=== PATIENT | male | born 1960 | race Caucasian/White ===

== ENCOUNTER 2019-11-12 17:17 | Observation (INO) ==
[2019-11-12 18:23] LABS: Basophils % 0.3 % (0.0-0.8); Eosinophils % 0.2 % (0.00-10.9); Hematocrit 45.8 VOL% (42.0-52.0); Hemoglobin 15.3 GM/DL (14.0-18.0); Immature Granulocytes % 0.6 %; Immature Granulocytes Absolute 0.06 #; Lymphocytes # 2.4 10*3/uL (1.4-4.0); Lymphocytes % 24.5 % (21.2-54.2); Mean Corpuscular HGB Conc 33.4 GM/DL (32-36); Mean Corpuscular Volume 89.5 FL (87-102); Mean Platelet Volume 8.9 FL (9.6-12.0); Monocytes % 9.5 % (1.7-12.7); Neutrophils % 64.9 % (38.7-73.9); Platelet Count 258 T/CUMM (130-400); Red Blood Count 5.12 MC/CUMM (3.8-5.5); White Blood Count 9.9 T/CUMM (4-12)
[2019-11-12 18:38] LABS: Alanine Aminotransferase 51 U/L (16-61); Albumin 4.4 G/DL (3.4-5.0); Alkaline Phosphatase 57 U/L (45-117); Aspartate Amino Transferase 41 U/L (0-37); Blood Urea Nitrogen 15 MG/DL (7-18); Calcium 9.3 MG/DL (8.5-10.1); Estimated Glom Filtration Rate 78 ML/MIN; Glucose 75 MG/DL (74-106); Osmolality,Calculated 259.8 MOS/KG (273-304); Total Protein 7.5 G/DL (6.4-8.3)
[2019-11-12 19:08] LABS: Apearance,Urine CLEAR (Clear); Bilirubin,Urine Negative (Negative); Blood, Urine Negative (Negative); Glucose,Urine (UA) Negative (Negative); Ketones,Urine 80 mg/dL (Negative); Mucus,Urine Occasional /LPF (Occasional); Nitrite,Urine Negative (Negative); Protein,Urine Negative; RBC,Urine 2 /HPF (0-4); Squamous Epithelial Cell,Urine Occasional /HPF (0-10); Urine Color Yellow (Yellow); Urine Specific Gravity 1.025 (1.001-1.035); WBC,Urine 1 /HPF (0-6)
[2019-11-12 19:12] LABS: Barbiturates Screen,Urine Negative (Negative); Benzodiazepines Screen,Urine Negative (Negative); Cannabinoid Screen,Urine Negative (Negative); Opiate Screen,Urine Negative (Negative); Phencyclidine Screen,Urine Negative (Negative)
[2019-11-12] MEDS ORDERED: SODIUM CHLORIDE 0.9% 1,000 ML IV STA (20:03)
[2019-11-12] MEDS ORDERED: hydrALAZINE 20 MG/1 ML VIAL IV PRN (21:32)
[2019-11-12] MEDS ORDERED: DOCUSATE SODIUM 100 MG CAPSULE PO PRN (21:32)
[2019-11-12] MEDS ORDERED: DEXTROSE 50% 25 GM/50 ML VIAL IV PRN (21:32)
[2019-11-12] MEDS ORDERED: ONDANSETRON 4 MG/2 ML VIAL IV PRN (21:32)
[2019-11-12] MEDS ORDERED: ACETAMINOPHEN 325 MG TABLET PO PRN (21:32)
[2019-11-12] MEDS ORDERED: GLUCAGON 1 MG VIAL IM PRN (21:32)
[2019-11-12] MEDS: METOPROLOL TARTRATE 25 MG TABLET PO SCH (23:30)
[2019-11-12] MEDS: PHENYTOIN ER 100 MG CAPSULE PO SCH (23:30)
[2019-11-13 05:39] LABS: Basophils % 0.5 % (0.0-0.8); Eosinophils # 0.1 10*3/uL (0.0-0.87); Eosinophils % 1.2 % (0.00-10.9); Hematocrit 39.2 VOL% (42.0-52.0); Hemoglobin 13.4 GM/DL (14.0-18.0); Immature Granulocytes % 0.3 %; Immature Granulocytes Absolute 0.02 #; Lymphocytes # 1.6 10*3/uL (1.4-4.0); Lymphocytes % 24.8 % (21.2-54.2); Mean Corpuscular HGB Conc 34.2 GM/DL (32-36); Mean Corpuscular Volume 88.5 FL (87-102); Mean Platelet Volume 8.8 FL (9.6-12.0); Monocytes % 10.1 % (1.7-12.7); Neutrophils % 63.1 % (38.7-73.9); Platelet Count 201 T/CUMM (130-400); Red Blood Count 4.43 MC/CUMM (3.8-5.5); Red Cell Distribution Width 12.9 % (9.3-17.3); White Blood Count 6.5 T/CUMM (4-12)
[2019-11-13 06:01] LABS: Albumin 3.5 G/DL (3.4-5.0); Bilirubin,Direct 0.16 MG/DL (0.0-0.20); Bilirubin,Indirect 0.7 MG/DL (0.0-1.0); Bilirubin,Total 0.9 MG/DL (0.2-1.0); Total Protein 6.1 G/DL (6.4-8.3)
[2019-11-13 06:07] LABS: Calcium 8.1 MG/DL (8.5-10.1); Osmolality,Calculated 262.5 MOS/KG (273-304); Risk Ratio 3.49; Thyroid Stimulating Hormone 2.08 uIU/ml (0.358-3.74); VLDL CHOLESTEROL 16.6 MG/DL
[2019-11-13 06:45] LABS: Apearance,Urine CLEAR (Clear); Bilirubin,Urine Negative (Negative); Blood, Urine Negative (Negative); Glucose,Urine (UA) Negative (Negative); Ketones,Urine 80 mg/dL (Negative); Mucus,Urine Occasional /LPF (Occasional); Nitrite,Urine Negative (Negative); Protein,Urine Negative; RBC,Urine 2 /HPF (0-4); Squamous Epithelial Cell,Urine Occasional /HPF (0-10); Urine Color Yellow (Yellow); Urine Specific Gravity 1.024 (1.001-1.035); WBC,Urine 1 /HPF (0-6)
[2019-11-13] MEDS: PHENYTOIN ER 100 MG CAPSULE PO SCH ×2 (09:48→20:43)
[2019-11-13] MEDS: PANTOPRAZOLE 40 MG TABLET PO SCH (09:48)
[2019-11-13] MEDS: lisinopriL 10 MG TABLET PO SCH (09:48)
[2019-11-13] MEDS: METOPROLOL TARTRATE 25 MG TABLET PO SCH ×2 (09:48→20:42)
[2019-11-14 04:59] LABS: Basophils % 0.3 % (0.0-0.8); Eosinophils # 0.1 10*3/uL (0.0-0.87); Eosinophils % 1.2 % (0.00-10.9); Hematocrit 39.4 VOL% (42.0-52.0); Hemoglobin 13.4 GM/DL (14.0-18.0); Immature Granulocytes % 0.3 %; Immature Granulocytes Absolute 0.02 #; Lymphocytes # 1.9 10*3/uL (1.4-4.0); Lymphocytes % 28.2 % (21.2-54.2); Mean Corpuscular Volume 87.9 FL (87-102); Mean Platelet Volume 9.2 FL (9.6-12.0); Monocytes % 9.1 % (1.7-12.7); Neutrophils % 60.9 % (38.7-73.9); Platelet Count 213 T/CUMM (130-400); Red Blood Count 4.48 MC/CUMM (3.8-5.5); Red Cell Distribution Width 13.1 % (9.3-17.3); White Blood Count 6.6 T/CUMM (4-12)
[2019-11-14 05:33] LABS: Albumin 3.4 G/DL (3.4-5.0); Bilirubin,Total 0.6 MG/DL (0.2-1.0); Calcium 8.5 MG/DL (8.5-10.1); Osmolality,Calculated 268.4 MOS/KG (273-304); Total Protein 5.9 G/DL (6.4-8.3)
[2019-11-14 08:41] VITALS: BP 139/54
[2019-11-14] MEDS: PANTOPRAZOLE 40 MG TABLET PO SCH (09:29)
[2019-11-14] MEDS: lisinopriL 10 MG TABLET PO SCH (09:29)
[2019-11-14] MEDS: METOPROLOL TARTRATE 25 MG TABLET PO SCH (09:29)
[2019-11-14] MEDS: PHENYTOIN ER 100 MG CAPSULE PO SCH (09:29)
== END 2019-11-14 10:54 ==
LOC: N.ED 17:17 → N.EDINP 21:32 → INTOOBSV 21:32 → N.3E 22:40
PROVIDERS: ADMIT Family Medicine; ATTEND Family Medicine